=== PATIENT | male | born 1955 | race American Indian/Alaskan Native ===

== ENCOUNTER 2019-09-27 07:20 | Emergency (ER) | payer OTHER ==
[2019-09-27 09:10] LABS: Basophils % (Auto) 0.4 % (0.0-1.8); Eosinophils # (Auto) 0.1 K/mm3 (0.0-0.4); Eosinophils % (Auto) 1.4 % (0.0-4.3); Hematocrit 31.5 % (35.5-45.6); Lymphocytes # (Auto) 0.6 K/mm3 (1.2-5.4); Lymphocytes % (Auto) 6.3 % (13.4-35.0); Mean Corpuscular HGB Conc 35 % (32-34); Mean Corpuscular Volume 90 fl (84-94); Monocytes # (Auto) 0.4 K/mm3 (0.0-0.8); Monocytes % (Auto) 3.9 % (0.0-7.3); Platelet Count 208 K/mm3 (140-440); Red Blood Count 3.51 M/mm3 (3.65-5.03); Red Cell Distribution Width 15.9 % (13.2-15.2)
[2019-09-27 09:47] LABS: Calcium 8.6 mg/dL (8.4-10.2)
[2019-09-27 10:24] LABS: Creatine Kinase MB 7.2 ng/mL (0.0-4.0)
[2019-09-27 10:27] LABS: Albumin 3.7 g/dL (3.9-5); Bilirubin,Direct 0.2 mg/dL (0-0.2)
[2019-09-27 10:38] LABS: Chol/HDL Ratio 2.16 %; Partial Thromboplastin Time 43.3 Sec. (24.2-36.6)
[2019-09-27 11:06] LABS: INR 1.57 (0.87-1.13)
[2019-09-27] MEDS ORDERED: HYDROcodone/ACETAMINOPHEN 5-325 MG TAB PO ONE (11:28)
[2019-09-27 11:47] LABS: Bacteria,Urine 3+ /HPF (Negative); Bilirubin,Urine NEG (Negative); Blood,Urine MOD (Negative); Color,Urine Red (Yellow); Mucus,Urine FEW /HPF; Triple Phosphate Crystal,Urine 2+; Urobilinogen,Urine < 2.0 mg/dL (<2.0)
[2019-09-27 11:49] LABS: Protein,Urine >500 mg/dL (Negative); RBC,Urine > 182.0 /HPF (0.0-6.0)
--- NOTE | 2019-09-27 11:55 | XRay Report ---
CHEST 1 VIEW INDICATION / CLINICAL INFORMATION: hypertension. COMPARISON: None available. FINDINGS: SUPPORT DEVICES: None. HEART / MEDIASTINUM: Cardiomegaly. LUNGS / PLEURA: Mild interstitial edema. Mild basilar atelectasis. Signer Name: Marcelino Krueger MD Signed: 09/27/2019 11:51 AM Workstation Name: [id number]
[2019-09-27] MEDS ORDERED: cefTRIAXone/NS 1 GM/50 ML 1 GM/50 ML BAG IV ONE (11:56)
--- NOTE | 2019-09-27 12:12 | Emergency Department Report ---
ED General Adult HPI - General Chief complaint: Urogenital-Male Stated complaint: CATHERATER REPLACEMENT Time Seen by Provider: 09/27/19 08:32 Source: patient Mode of arrival: Wheelchair Limitations: Physical Limitation - History of Present Illness Initial comments: This is a 64-year old man who went to the cardiovascular clinic after he noted blood in his urine this a.m. He states that last night he went to the bathroom and his catheter bag was still attached to his wheelchair so it pulled on the catheter. After that he noted blood in his urine. Patient is a rather poor historian. He is diabetic. He does not know much about his history. He has severe bilateral lymphedema and a rapid wound of his right leg. He states he is going to the wound care clinic in 2 days. He does not report fever or chills. He states that he does not know why he was sent by the [facility] here for evaluation. -: Gradual Quality: aching (Complains of generalized joint and muscle aching) Consistency: intermittent Improves with: none Worsens with: none Associated Symptoms: denies other symptoms - Related Data Allergies Allergy/AdvReac Type Severity Reaction Status Date / Time No Known Allergies Allergy Unverified 09/27/19 07:30 ED Review of Systems ROS: Stated complaint: CATHERATER REPLACEMENT Other details as noted in HPI Constitutional: denies: chills, fever Eyes: denies: eye pain, vision change ENT: denies: ear pain, throat pain Respiratory: denies: cough, shortness of breath, wheezing Cardiovascular: denies: chest pain, palpitations Endocrine: no symptoms reported Gastrointestinal: denies: abdominal pain, nausea, diarrhea Genitourinary: denies: urgency, dysuria Musculoskeletal: arthralgia, myalgia Skin: other (Chronic lymphedema both legs). denies: rash, lesions Neurological: denies: headache, weakness, paresthesias Psychiatric: denies: anxiety, depression Hematological/Lymphatic: denies: easy bleeding, easy bruising ED Past Medical Hx - Past Medical History Previous Medical History?: Yes Hx Hypertension: Yes Hx Congestive Heart Failure: Yes Hx Diabetes: Yes - Surgical History Past Surgical History?: Yes Additional Surgical History: left wrist. testicular surgery for "twisted veins" - Social History Smoking Status: Never Smoker Substance Use Type: None ED Physical Exam - General Limitations: Physical Limitation General appearance: obese, other (Anasarca) - Head Head exam: Present: atraumatic - Eye Eye exam: Absent: scleral icterus - ENT ENT exam: Present: mucous membranes moist - Neck Neck exam: Absent: tenderness, meningismus - Respiratory Respiratory exam: Present: normal lung sounds bilaterally. Absent: respiratory distress - Cardiovascular Cardiovascular Exam: Present: regular rate, normal rhythm, S4 - GI/Abdominal GI/Abdominal exam: Present: soft, distended, mass (Cytomegaly). Absent: tenderness, guarding, rebound, rigid - exam: Present: other (Indwelling catheter, penile edema, glan not visible) - Extremities Exam Extremities exam: Present: other (Severe bilateral lymphedema with erythema. Dressed lower leg wound on right) - Back Exam Back exam: Present: other (Limited inspection) - Neurological Exam Neurological exam: Present: alert, oriented X3, CN II-XII intact. Absent: motor sensory deficit (No acute focal deficit) - Psychiatric Psychiatric exam: Present: normal affect, flat affect - Skin Skin exam: Present: other (As above indicated) ED Course Vital Signs 09/27/19 09/27/19 07:20 08:12 Temperature 98.3 F 98.5 F Pulse Rate 83 62 Respiratory 18 16 Rate Blood Pressure 170/70 Blood Pressure 168/81 [Left] O2 Sat by Pulse 99 100 Oximetry - Reevaluation(s) Reevaluation #1: The patient's chest x-ray showed cardiomegaly megaly without decompensation. Patient has severely elevated BNP. Creatinine of 2/BUN of 45 I discussed his labs with the [facility] physician. He has chronic renal insufficiency. His last BnP in July was 900. His urine was indicative of infection/hematuria. His Courtney was advanced and it was draining. It was deemed injudicious to remove it as replacement would be difficult at best. Patient is given ceftriaxone as coverage for his cystitis. Urine culture was sent. The [facility] physician stated that she would arrange transfer likely to [facility]. 09/27/19 12:15 Reevaluation #2: Patient had a period of Mobitz type II second-degree AV block on EKG. However, he is in normal sinus rhythm persistently now. 09/27/19 12:19 ED Medical Decision Making - Lab Data Result diagrams: 09/27/19 08:52 09/27/19 08:52 Laboratory Results - last 24 hr 09/27/19 09/27/19 09/27/19 07:45 08:52 08:52 WBC 9.6 RBC 3.51 L Hgb 11.0 L Hct 31.5 L MCV 90 MCH 31 MCHC 35 H RDW 15.9 H Plt Count 208 Lymph % (Auto) 6.3 L Dixon % (Auto) 3.9 Eos % (Auto) 1.4 Baso % (Auto) 0.4 Lymph # 0.6 L Dixon # 0.4 Eos # 0.1 Baso # 0.0 Seg Neutrophils % 88.0 H Seg Neutrophils # 8.5 H PT INR APTT Sodium 139 Potassium 3.7 Chloride 100.4 Carbon Dioxide 23 Anion Gap 19 BUN 45 H Creatinine 2.0 H Estimated GFR 41 BUN/Creatinine Ratio 23 Glucose 285 H POC Glucose 259 H Lactic Acid Calcium 8.6 Magnesium Total Bilirubin Direct Bilirubin Indirect Bilirubin AST ALT Alkaline Phosphatase Total Creatine Kinase CK-MB (CK-2) CK-MB (CK-2) Rel Index Troponin T NT-Pro-B Natriuret Pep Total Protein Albumin Albumin/Globulin Ratio Triglycerides Cholesterol LDL Cholesterol Direct HDL Cholesterol Cholesterol/HDL Ratio Urine Color Urine Turbidity Urine pH Ur Specific [place] Urine Protein Urine Glucose (UA) Urine Ketones Urine Blood Urine Nitrite Urine Bilirubin Urine Urobilinogen Ur Leukocyte Esterase Urine WBC (Auto) Urine RBC (Auto) U Epithel Cells (Auto) Urine Bacteria (Auto) Triple Phos Crystals Urine Mucus 09/27/19 09/27/19 09/27/19 09:50 09:54 09:54 WBC RBC Hgb Hct MCV MCH MCHC RDW Plt Count Lymph % (Auto) Dixon % (Auto) Eos % (Auto) Baso % (Auto) Lymph # Dixon # Eos # Baso # Seg Neutrophils % Seg Neutrophils # PT 18.5 H INR 1.57 H APTT 43.3 H Sodium Potassium Chloride Carbon Dioxide Anion Gap BUN Creatinine Estimated GFR BUN/Creatinine Ratio Glucose POC Glucose 299 H Lactic Acid Calcium Magnesium 2.00 Total Bilirubin 1.00 Direct Bilirubin 0.2 Indirect Bilirubin 0.8 AST 29 ALT 14 Alkaline Phosphatase 78 Total Creatine Kinase 501 H CK-MB (CK-2) 7.2 H CK-MB (CK-2) Rel Index 1.4 Troponin T 0.077 H NT-Pro-B Natriuret Pep 2540 H Total Protein 7.1 Albumin 3.7 L Albumin/Globulin Ratio 1.1 Triglycerides 65 Cholesterol 104 LDL Cholesterol Direct 54 HDL Cholesterol 48 Cholesterol/HDL Ratio 2.16 Urine Color Urine Turbidity Urine pH Ur Specific [place] Urine Protein Urine Glucose (UA) Urine Ketones Urine Blood Urine Nitrite Urine Bilirubin Urine Urobilinogen Ur Leukocyte Esterase Urine WBC (Auto) Urine RBC (Auto) U Epithel Cells (Auto) Urine Bacteria (Auto) Triple Phos Crystals Urine Mucus 09/27/19 09/27/19 10:01 10:25 WBC RBC Hgb Hct MCV MCH MCHC RDW Plt Count Lymph % (Auto) Dixon % (Auto) Eos % (Auto) Baso % (Auto) Lymph # Dixon # Eos # Baso # Seg Neutrophils % Seg Neutrophils # PT INR APTT Sodium Potassium Chloride Carbon Dioxide Anion Gap BUN Creatinine Estimated GFR BUN/Creatinine Ratio Glucose POC Glucose Lactic Acid 1.00 Calcium Magnesium Total Bilirubin Direct Bilirubin Indirect Bilirubin AST ALT Alkaline Phosphatase Total Creatine Kinase CK-MB (CK-2) CK-MB (CK-2) Rel Index Troponin T NT-Pro-B Natriuret Pep Total Protein Albumin Albumin/Globulin Ratio Triglycerides Cholesterol LDL Cholesterol Direct HDL Cholesterol Cholesterol/HDL Ratio Urine Color Red Urine Turbidity Turbid Urine pH 9.0 H Ur Specific [place] 1.014 Urine Protein >500 Urine Glucose (UA) Neg Urine Ketones Neg Urine Blood Mod Urine Nitrite Neg Urine Bilirubin Neg Urine Urobilinogen < 2.0 Ur Leukocyte Esterase Lg Urine WBC (Auto) 70.0 H Urine RBC (Auto) > 182.0 U Epithel Cells (Auto) 1.0 Urine Bacteria (Auto) 3+ Triple Phos Crystals 2+ Urine Mucus Few - EKG Data -: EKG Interpreted by Ar - EKG Data Interpretation: no acute changes, other (Second-degree AV block Mobitz type II with 1 PVC noted) - Radiology Data Radiology results: report reviewed, image reviewed Critical care attestation.: If time is entered above; I have spent that time in minutes in the direct care of this critically ill patient, excluding procedure time. ED Disposition Clinical Impression: Acute cystitis with hematuria, Second degree Mobitz II AV block, Lymphedema, Chronic renal insufficiency, stage III (moderate), Nodular prostate, Uncontrolled hypertension, Elevated troponin Cardiomyopathy Qualifiers: Cardiomyopathy type: unspecified Qualified Code(s): I42.9 - Cardiomyopathy, unspecified Disposition: DC/TX-70 ANOTHER TYPE HLTHCARE Is pt being admited?: No Does the pt Need Aspirin: Yes Condition: Stable Instructions: Hypertension (ED) Referrals: ADRY ALVA MD [Primary Care Provider] - 3-5 Days Time of Disposition: 12:20
[2019-09-27] MEDS ORDERED: ASPIRIN 325 MG TAB PO ONE (12:20)
[2019-09-27 16:15] VITALS: BP 196/82
== END 2019-09-27 16:24 | disposition other institution (70) ==
LOC: ED 07:20
DX: N30.01 Acute cystitis with hematuria (principal); E13.22 Other specified diabetes mellitus with diabetic chronic kidney disease; I13.0 Hypertensive heart and chronic kidney disease with heart failure and stage 1 through stage 4 chronic kidney disease, or unspecified chronic kidney disease; N18.3 Chronic kidney disease, stage 3 (moderate); I42.9 Cardiomyopathy, unspecified; I44.1 Atrioventricular block, second degree; N40.2 Nodular prostate without lower urinary tract symptoms; R79.89 Other specified abnormal findings of blood chemistry; I89.0 Lymphedema, not elsewhere classified
CPT/HCPCS: 36415; 71045; 80048; 80061; 80076; 81001; 82140; 82550; 82553; 82962; 83735; 83880; 84484; 85025; 85610; 85730; 87040; 87086; 93005; 96365; 96375; 99285; J0696